=== PATIENT | male | born 1985 | race African-American/Black ===

== ENCOUNTER 2019-01-12 09:55 | Emergency (ER) | payer OTHER | END 2019-01-12 11:10 | disposition home or self-care (01) | LOC: JERFT 09:55 ==

== ENCOUNTER 2019-07-21 14:48 | Emergency (ER) | payer OTHER ==
--- NOTE | 2019-07-21 14:59 | PDOC ---
Rapid Medical Evaluation Chief Complaint: Pain, Acute Time Seen by Provider: 07/21/19 14:57 Medical Evaluation: Allergies Allergy/AdvReac Type Severity Reaction Status Date / Time No Known Allergies Allergy Verified 07/21/19 14:55 07/21/19 14:58 Pt c/o: rt foot pain x 2 days hit against bleachers, pain w/ movement, no prev injury Pt on brief exam: tenderness to dorsal aspect of mid foot, from of toes, amb w/ limp Pt ordered for: foot xray Pt to proceed to the ED Discharge Disposition - Diagnosis Foot injury - Referrals - Patient Instructions - Post Discharge Activity
[2019-07-21 15:00] VITALS: BP 127/91; PULSE 103; TEMP 97.9; BMI 24.7
--- NOTE | 2019-07-21 16:39 | PDOC ---
History of Present Illness - General Chief Complaint: Pain, Acute Stated Complaint: RT FOOT PAIN Time Seen by Provider: 07/21/19 14:57 History Source: Patient Exam Limitations: Clinical Condition - History of Present Illness Initial Comments: 07/21/19 16:53 Patient with no significant past medical history present with complaint of pain to dorsum of right midfoot status post accidentally kicking [place] from stadium seat with a top of the foot yesterday. Patient report taking Motrin for pain today which has been helpful and pain. Report mild swelling to top of right foot. Denies any other symptoms Occurred: reports: yesterday Past History - Past Medical History Allergies/Adverse Reactions: Allergies Allergy/AdvReac Type Severity Reaction Status Date / Time No Known Allergies Allergy Verified 07/21/19 14:55 Home Medications: Ambulatory Orders Ibuprofen [Motrin -] 600 mg PO TID PRN 07/21/19 COPD: No Thyroid Disease: No - Immunization History Immunization Up to Date: Yes - Psycho Social/Smoking Cessation Hx Smoking History: Never smoked Number of Cigarettes Smoked Daily: 10 Hx Alcohol Use: No Drug/Substance Use Hx: No Substance Use Type: None Review of Systems - Review of Systems Able to Perform ROS?: Yes Is the patient limited Bulgarian proficient: No Constitutional: No: Malaise, Weakness HEENTM: No: Symptoms Reported Respiratory: No: Symptoms reported Cardiac (ROS): No: Symptoms Reported ABD/GI: No: Symptoms Reported Musculoskeletal: Yes: Symptoms Reported, See HPI, Joint Swelling (right foot), Muscle Pain (anterior right foot pain) Integumentary: Yes: Symptoms Reported, See HPI, Other (swelling to dorsal apsect of right foot). No: Bruising Neurological: No: Symptoms reported, Numbness, Paresthesia, Tingling All Other Systems: Reviewed and Negative *Physical Exam - Vital Signs Last Vital Signs Temp Pulse Resp BP Pulse Ox 97.9 F 103 H 18 127/91 99 07/21/19 14:58 07/21/19 14:58 07/21/19 14:58 07/21/19 14:58 07/21/19 14:58 - Physical Exam 07/21/19 16:49 GENERAL: Well developed, well nourished. Awake and alert in mild acute distress. PULMONARY: No evidence of respiratory distress. MUSCULOSKELETAL : mild tenderness over dorsum of right midfoot with mild localized to dorsum of right foot. no tenderness to ankle or toes SKIN: Warm and dry. Normal capillary refill. bruising or ecchymosis to right foot. NEUROLOGICAL: Alert, awake, appropriate. No motor deficits in the lower extremities. Gait is normal without ataxia. PSYCHIATRIC: Cooperative. Good eye contact. Appropriate mood and affect. General Appearance: Yes: Nourished, Appropriately Dressed, Mild Distress Medical Decision Making - Medical Decision Making 07/21/19 16:54 Patient with no significant past medical history present with complaint of pain to dorsum of right midfoot status post accidentally kicking Eli from stadium seat with a top of the foot yesterday. Patient report taking Motrin for pain today which has been helpful and pain. Report mild swelling to top of right foot. Denies any other symptoms Exam significant for mild tenderness to dorsum of right midfoot with mild localized swelling to dorsum of right foot. No ecchymosis or bruising to foot. X-ray of right foot shows no acute fracture or dislocation. Symptoms likely foot contusion. Right foot wrapped with [place] bandage. Patient stable for discharge to take home Motrin as needed for pain and hot compress with podiatry follow-up as needed Discharge - Discharge Information Problems reviewed: Yes Clinical Impression/Diagnosis: Foot injury Qualifiers: Encounter type: initial encounter Laterality: right Qualified Code(s): S99.921A - Unspecified injury of right foot, initial encounter Condition: Stable Disposition: HOME - Admission No - Follow up/Referral Referrals: Stan Goel MD [Staff Physician] - - Patient Discharge Instructions Patient Printed Discharge Instructions: DI for Foot Sprain Additional Instructions: X-ray of your foot shows no acute fracture or dislocation. Symptoms likely foot contusion and pain caused by swelling. Continue home Motrin as needed for pain and apply hot compress to foot as needed for swelling. Follow-up referred to podiatry if no improvement in 4 days - Post Discharge Activity Work/Back to School Note: Back to Work
== END 2019-07-21 16:47 | disposition home or self-care (01) ==
LOC: JERFT 14:48
DX: S99.821A Other specified injuries of right foot, initial encounter (principal); M79.671 Pain in right foot; W22.8XXA Striking against or struck by other objects, initial encounter; Y93.82 Activity, spectator at an event; Y92.39 Other specified sports and athletic area as the place of occurrence of the external cause; Y99.8 Other external cause status
CPT/HCPCS: 73630-TC-RT-FY; 99282-25

== ENCOUNTER 2024-05-13 07:11 | Emergency (ER) | payer SELFPAY ==
[2024-05-13 07:20] VITALS: PULSE 102; RESP 18; TEMP 98.6; BMI 25.0
[2024-05-13 07:44] VITALS: BP 106/70
[2024-05-13] MEDS ORDERED: ACETAMINOPHEN 325 MG TABLET (FP) ONE (07:47)
[2024-05-13] MEDS: ACETAMINOPHEN 325 MG TABLET (FP) PO ONE (07:50)
[2024-05-13] MEDS ORDERED: KETOROLAC TROMETHAMINE 30 MG/1 ML VIAL ONE (08:00)
[2024-05-13] MEDS: KETOROLAC TROMETHAMINE 30 MG/1 ML VIAL IM ONE (08:07)
== END 2024-05-13 11:43 | disposition home or self-care (01) ==
LOC: JER 07:11
PROC: 3E0133Z Introduction of Anti-inflammatory into Subcutaneous Tissue, Percutaneous Approach (ICD-10-PCS; principal; 2024-05-13)
DX: M25.571 Pain in right ankle and joints of right foot (principal); M25.471 Effusion, right ankle
CPT/HCPCS: 73630-TC-RT-FY; 99284-25